=== PATIENT | female | born 1940 | race Caucasian/White ===

== ENCOUNTER 2025-04-06 07:23 | Emergency (ER) | payer SELFPAY ==
[~2025-04-06] VITALS: Ht 165.1 cm; Wt 57.6 kg
[2025-04-06 07:30] VITALS: BP 146/65; PULSE 102; RESP 18; TEMP 97.5; O2SAT 93
== END 2025-04-06 10:12 | disposition left against medical advice (07) ==
LOC: ER 07:24
DX: R05.9 Cough, unspecified (principal); J00 Acute nasopharyngitis [common cold]; R68.89 Other general symptoms and signs; Z53.21 Procedure and treatment not carried out due to patient leaving prior to being seen by health care provider
CPT/HCPCS: 99281